=== PATIENT | female | born 1955 ===

== ENCOUNTER 2021-03-04 04:49 | Day surgery (SDC) | payer BC ==
[2021-02-28 19:53] VITALS: BMI 31.6
[2021-03-04] MEDS ORDERED: IBUPROFEN 800 MG/8 ML IJ IVPB PRN (09:59)
[2021-03-04] MEDS ORDERED: ONDANSETRON 4 MG/2 ML VIAL IVPUSH PRN ×2 (09:59→11:23)
[2021-03-04] MEDS ORDERED: ELECTROLYTE-148 SOLN 1,000 ML IV SCH (10:00)
[2021-03-04] MEDS ORDERED: SUCCINYLCHOLINE CHLORIDE 200 MG/10 ML SYRINGE ONE (10:21)
[2021-03-04] MEDS ORDERED: EPHEDRINE SULFATE/0.9% NACL/PF 50 MG/10 ML SYRINGE NR ONE (10:21)
[2021-03-04] MEDS ORDERED: PROPOFOL 20 ML ONE ×2 (10:21)
[2021-03-04] MEDS ORDERED: ACETAMINOPHEN 500 MG TABLET (FP) PO PRN (11:23)
[2021-03-04 14:14] VITALS: BP 127/68; PULSE 70; TEMP 97.3
== END 2021-03-04 14:05 | disposition home or self-care (01) ==
LOC: JASU-SURG 04:49
PROVIDERS: ATTEND Obstetrics & Gynecology
PROC: 0UJD8ZZ Inspection of Uterus and Cervix, Via Natural or Artificial Opening Endoscopic (ICD-10-PCS; 2021-03-04)
PROC: 0UB98ZZ Excision of Uterus, Via Natural or Artificial Opening Endoscopic (ICD-10-PCS; principal; 2021-03-04 10:00)
PROC: 0UDB7ZX Extraction of Endometrium, Via Natural or Artificial Opening, Diagnostic (ICD-10-PCS; 2021-03-04 10:00)
DX: D25.0 Submucous leiomyoma of uterus (principal)
CPT/HCPCS: 82962; 86850; 86900; 86901; 88305-TC; 94760